=== PATIENT | male | born 1960 | race Caucasian/White ===

== ENCOUNTER 2019-12-26 09:13 | Emergency (ER) | payer OTHER, SELFPAY ==
[2019-12-26 09:24] VITALS: BP 179/99; PULSE 88; RESP 16; TEMP 36.9; O2SAT 96; BMI 36.9
--- NOTE | 2019-12-26 09:40 | W.ED.SKABFB ---
HPI - Skin/Abscess/Foreign Bdy General: Chief complaint: Skin/Abscess/Foreign Body Stated complaint: SPIDER ON LEFT ANKLE Time Seen by Provider: 12/26/19 09:23 History of Present Illness: HPI narrative: Patient has a red area to his inner left ankle which he feels was most likely a spider bite because he seen some brown recluse was around just moved here from [place] has tenderness to the area and redness no drainage does have a bite maria teresa to the center complaint: insect bite/sting Onset (ago): day(s) Tetanus up to date: unsure Location: L foot Severity: mild Quality: aching Relieving factors: none Associated symptoms: Deny chills, fever(s), nausea or vomiting Review of Systems Const: Denies: fever(s), chills or body aches Eyes: Denies: change in vision or blurry vision ENMT: Denies: throat pain or nasal congestion Card: Denies: chest pain or dyspnea on exertion Resp: Denies: dyspnea, productive cough or non-productive cough GI: Denies: abdominal pain, nausea or vomiting : Denies: difficulty urinating Musc: Denies: extremity pain Skin/Breast: Reports: pruritus, erythema, skin pain and skin tenderness (Left medial ankle area); Denies: rash Neuro: Denies: headache(s) Psych: Denies: anxiety or depression Darrius/Lymph: Denies: easy bruising PFSH ED PFSH: Social History Smoking and tobacco status: former smoker Physical Exam Const: COMMON NORMALS: no acute distress, average body habitus and patient oriented x3 HENMT: COMMON NORMALS: normocephalic HEAD & SCALP: normal to inspection and normocephalic FACE & SINUS: normal facial exam Eye: COMMON NORMALS: conjunctivae normal GENERAL EYE: appearance normal, both eyes and all related structures CONJUNCTIVA: Yes conjunctivae normal Neck/C-Spine: COMMON NORMALS: no JVD Chest: COMMONS NORMALS: normal inspection of the chest Resp: COMMON NORMALS: normal respiratory effort and clear to auscultation bilaterally AUSCULTATION: clear to auscultation bilaterally Cardio: COMMON NORMALS: no JVD, regular rate and regular rhythm RATE: regular rate RHYTHM: regular rhythm GI: COMMON NORMALS: Normal to inspection, nondistended, normoactive bowel sounds present Extremity: COMMON NORMALS: normal to inspection and full ROM Neuro: COMMON NORMALS: patient oriented x3 Skin: GENERAL SKIN EXAM: erythema (Very mild the center of the erythema does have what appears to be a bite area the erythema extends out about 2 inches irregularly from this area with some purpura around it also did get has good distal pulses cap refill), purpura and other Course Vital Signs: Vital signs: Vital Signs Temperature 98.4 F 12/26/19 09:24 Pulse Rate 88 12/26/19 09:24 Respiratory Rate 16 12/26/19 09:24 Blood Pressure 179/99 12/26/19 09:24 Pulse Oximetry 96 12/26/19 09:24 Coding Level of Care Code ED Environmental Health Specialist for [facility]man
[2019-12-26 09:51] VITALS: BP 172/93; PULSE 86; RESP 18; O2SAT 96
== END 2019-12-26 09:53 | disposition home or self-care (01) ==
PROVIDERS: Emergency Provider Nurse Practitioner Family
DX: T63.301A Toxic effect of unspecified spider venom, accidental (unintentional), initial encounter (principal); Z87.891 Personal history of nicotine dependence
CPT/HCPCS: 12345; 99281; 99282